=== PATIENT | male | born 1950 | race Caucasian/White ===

== ENCOUNTER → 2019-10-13 10:02 | Outpatient (CLI) | payer OTHER | END | disposition home or self-care (01) | LOC: D.HCCARDIO 10:00 → D.HCCECHO 10:30 | PROVIDERS: ATTEND Internal Medicine Cardiovascular Disease | DX: I10 Essential (primary) hypertension (principal) ==

== ENCOUNTER → 2019-11-14 08:56 | Outpatient (CLI) | payer OTHER | END | disposition home or self-care (01) | LOC: D.HCCARDIO 08:56 | PROVIDERS: ATTEND Internal Medicine Cardiovascular Disease | DX: I20.9 Angina pectoris, unspecified (principal) ==

== ENCOUNTER 2019-11-28 07:24 | Outpatient (CLI) | payer OTHER ==
[~2019-11-28] VITALS: Ht 177.8 cm; Wt 85.3 kg
--- NOTE | ~2019-11-28 | HEMODYNAMI ---
PATIENT:LUANNE FARLEY MEDICAL RECORD: [id number] : 52 LOCATION:[facility] ADMISSION DATE: 11/28/19 Generatedon:11/28/201910:14 Patient name: LUANNE FARLEY Patient #: [id number] : 1950 Date of study: 11/28/2019 Page: Of Hemodynamic Procedure Report Patient Data Patient Demographics Procedure consent was obtained First Name: LUANNE Gender: Male Last Name: MARTINE : 1950 Patient #: [id number] Age: 69 year(s) Race: SSN: [id number] Additional ID: [id number] Contact details Address: [address] [place] [address] State: [place] City: [place] Zip code: [address] Past Medical History Allergies: No known allergies Admission Admission Data Admission Date: 11/28/2019 Admission Time: 7:24 Arrival Date: 11/28/2019 Arrival Time: 9:30 Admit Source: Other Insurance Payor: Private health insurance [facility] #: [id number] Height (in.): 70 BSA: 2.03 (m2) Height (cm.): 177.8 BMI: 26.89 (kg/m2) Weight (lbs.): 187.39 Weight (kg.): 85 Lab Results Lab Result Date: 11/28/2019 Lab Result Time: 0:00 Biochemistry Name Units Result Min Max BUN mg/dl 13 --(--*-)-- 7 18 Creatinine mg/dl 1.3 --(---*)-- 0.6 1.3 eGFR ml/min 58 *-(----)-- 90 120 NONAFRICAN CBC Name Units Result Min Max Hematocrit % 48.9 --(--*-)-- 42 54 Hemoglobin g/dl 16.5 --(--*-)-- 13.5 17.5 Procedure Procedure Types Cath Procedure Diagnostic Procedure [facility] w/Coronaries Sedation Charges Moderate Sedation up to 15 minutes Procedure Description Procedure Date Procedure Date: 11/28/2019 Procedure Start Time: 10:03 Procedure End Time: 10:12 Procedure Staff Name Function Pedro Braden MD Performing Physician Meredith Ford RT Monitor Conchis Dyer RT Scrub Rosie Saab RN Nurse Procedure Data Cath Procedure Fluoroscopy Diagnostic fluoroscopy Total fluoroscopy Time: 2.3 time: 2.3 min min Diagnostic fluoroscopy Total fluoroscopy dose: 528 dose: 528 mGy mGy Contrast Material Contrast Material Type Amount (ml) Isovue 300 33 Entry Location Entry Primary Successful Side Size Upsize Upsize Entry Closure [place] ccessful Closure Location (Fr) 1 (Fr) 2 (Fr) Remarks Device Remarks Radial Right 6 Fr Mechanical artery Short Compression Estimated blood loss: 5 ml Diagnostic catheters Device Type Used For End Catheter Placement DIAGNOSTIC Sánchez 110cm Multi-vessel 5Fr catheter ([id number]) Angiography DIAGNOSTIC [place] 110cm 5 Multi-vessel Fr catheter (328931) Angiography Procedure Complications No complications Procedure Medications Medication Administration Route Dosage Oxygen etCO2 Nasal cannula 2 l/min Lidocaine 2% added to field 20 Heparin Flush Bag added to field 2 bags (1000units/500ml NS) 0.9% NaCl I.V. 100 ml/hr Versed I.V. 1 mg Fentanyl I.V. 50 mcg Versed I.V. 1 mg Fentanyl I.V. 50 mcg Radial Cocktail I.A. 1 syringe (Verapamil 2mg/Nitro 400mcg/Heparin 1500units) Hemodynamics Rest BSA: 2.03 (m2) HGB: 16.5 (g/dl) O2 Consumption: Estimated: 225.52 (ml/min) O2 Co nsumption indexed: Estimated:111.09 (ml/min/m) Heart Rate: 57 (bpm) Pressure Samples Time Site Value (mmHg) Purpose Heart Use Rate(bpm) 10:04 LV 97/-6,3 Snapshot 65 10:05 AO 72/43(53) Pullback 67 10:05 LV 91/-7,3 Pullback 67 Gradients Valve Time Site 1 Site 2 Mean SEP/DFP Peak To Heart Use (mmHg) (sec/min) Peak Rate (mmHg) (bpm) Aortic 10:05 LV AO 10 19 19 67 91/-7,3 72/43(53) Calculations Valve P-P Mean Valve Index Valve Source Name Gradient Area Flow (cm2) Aortic 19 10 19 10 Snapshots Pre Cath Intra NCS Post Cath Vital Signs Time Heart Resp SPO2 etCO2 NIBP Rhythm Pain Sedation Rate (ipm) (%) (mmHg) (mmHg) Status Level (bpm) 9:45:37 56 14 99 0 126/70(88) NSR 0 (11) 10(A) , No pain 9:49:49 57 15 99 37.3 123/71(83) NSR 0 (11) 10(A) , No pain 9:54:01 56 12 95 0 115/70(82) NSR 0 (11) 10(A) , No pain 9:58:11 62 13 92 0 111/66(80) NSR 0 (11) 10(A) , No pain 10:02:21 60 11 94 34.3 108/62(74) NSR 0 (11) 9(A) , No pain 10:06:31 62 11 92 0 104/60(75) NSR 0 (11) 9(A) , No pain 10:10:37 64 14 93 29.8 108/63(83) NSR 0 (11) 10(A) , No pain Medications Time Medication Route Dose Verified Delivered Reason Notes Effectiveness by by 9:45:09 Oxygen etCO2 2 l/min Pedro Buffie used for Nasal Sampson Saab RN procedure cannula 9:45:16 Lidocaine 2% added 20ml Pedro Pedro for local to vial Sampson Braden MD anesthetic field 9:45:20 Heparin Flush added 2 bags Pedro Pedro used for Bag to Sampson Braden MD procedure (1000units/500ml field NS) 9:45:29 0.9% NaCl I.V. 100 Pedro Buffie Per ml/hr Sampson Saab RN physician 9:51:58 Versed I.V. 1 mg Pedro Buffie for sedation Sampson Saab RN 9:52:03 Fentanyl I.V. 50 mcg Pedro Buffie for sedation Sampson Saab RN 9:56:28 Versed I.V. 1 mg Pedro Buffie for sedation Sampson Saab RN 9:56:31 Fentanyl I.V. 50 mcg Pedro Buffie for sedation Sampson Saab RN 10:03:22 Radial Cocktail I.A. 1 Pedro Pedro for (Verapamil syringe Sampson Braden MD vasodilation 2mg/Nitro 400mcg/Heparin 1500units) Procedure Log Time Note 9:23:15 Diagnostic Cath Status : Elective 9:24:18 Procedure Status Elective Heart Cath (OP). 9:24:21 Conchis Dyer RT(R) sent for patient. Start room use. 9:24:22 Time tracking: Regular hours (M-F 7:00 - 5:00) 9:24:27 Plan of Care:Hemodynamics will remain stable., Cardiac rhythm will remain stable., Comfort level will be maintained., Respiratory function will remain adequate., Patient/ family verbilizes understanding of procedure., Procedure tolerated without complication., Recovers from procedure without complications.. 9:25:55 Informed consent obtained and on chart 9:27:36 Arrival Date: 11/28/2019 9:30:00 AM 9:27:59 Admit Source: Other 9:28:05 Insurance Payor : Private health insurance 9:32:01 Patient Weight : 187.39 lbs 9:32:13 Patient Height : 70 inches 9:32:37 H&P Date Dictated: 11/28/2019 Within 30 days and on chart., H&P Addendum completed by physician on day of procedure. (MUST COMPLETE FOR ALL OUTPATIENTS). 9:32:44 Patient allergic to No known allergies 9:33:11 Lab Result : BUN 13 mg/dl 9:33:11 Lab Result : Creatinine 1.3 mg/dl 9:33:11 Lab Result : eGFR NONAFRICAN 58 ml/min 9:33:12 Lab Result : Hemoglobin 16.5 g/dl 9:33:12 Lab Result : Hematocrit 48.9 % 9:38:36 Patient received from Pre/Post Procedure Room to CCL 2 Alert and oriented. Tansferred to table in Supine position. 9:38:37 Warm blankets applied, and amelia hugger turned on for patient comfort. 9:38:37 Correct patient and procedure confirmed by team. 9:38:38 ECG and BP/O2 sat monitors applied to patient. 9:44:28 Vital chart was started 9:45:09 Oxygen 2 l/min etCO2 Nasal cannula was administered by Rosie Saab RN; used for procedure; Verbal order read back and verified. 9:45:16 Lidocaine 2% 20ml vial added to field was administered by Pedro Braden MD; for local anesthetic; Verbal order read back and verified. 9:45:20 Heparin Flush Bag (1000units/500ml NS) 2 bags added to field was administered by Pedro Braden MD; used for procedure; Verbal order read back and verified. 9:45:29 0.9% NaCl 100 ml/hr I.V. was administered by Rosie Saab RN; Per physician; Verbal order read back and verified. 9:47:19 Baseline sample Acquired. 9:47:23 Rhythm: sinus rhythm 9:47:24 Pre-procedure instructions explained to patient. 9:47:25 Pre-op teaching completed and patient verbalized understanding. 9:47:27 Family in patients room. 9:47:28 Patient NPO since Midnight. 9:47:31 Is the patient allergic to Iodine/contrast media? No. 9:47:42 Was the patient premedicated? No 9:47:42 Is patient on blood thinner?No 9:47:44 Patient diabetic? No. 9:47:46 Previous problem with sedation/anesthesia? No ? 9:47:47 Snore? Yes 9:47:48 Sleep apnea? No 9:47:50 Deviated septum? No 9:47:51 Opens mouth fully? Yes 9:47:51 Sticks out tongue? Yes 9:47:53 Airway obstruction? No ? 9:47:56 Dentures? No ? 9:47:59 Pre procedure: right dorsailis pedis pulse 2+ Normal; easily identifiable; not easily obliterated 9:48:01 Pre procedure: left dorsailis pedis pulse 2+ Normal; easily identifiable; not easily obliterated 9:48:04 Patient pain scale 0/10 ?. 9:48:08 IV patent on arrival in left forearm with 0.9% NaCl at [facility]. 9:48:14 Lab results completed and on chart. 9:48:22 Stress Test: yes; abnormal inferior 9:48:28 Right Radial & Right Groin area was prepped with chlora-prep and draped in sterile fashion 9:48:29 Alarms reviewed by R. N. 9:48:30 Sharps counted by scrub and verified by R.N. 9:48:31 Physician arrived 9:48:31 --------ALL STOP TIME OUT------ 9:48:32 Final Timeout: patient, procedure, and site verified with staff and physician. All members of the team are in agreement. 9:48:33 Right Radial & Right Groin site verified by team. 9:48:37 Fire Safety Assessment: A--An alcohol-based skin anteseptic being used preoperatively., C--Open oxygen or nitrous oxide is being used., D--An ESU, laser, or fiber-optic light is being used. 9:48:39 Physical assessment completed. ASA score P 2 - A patient with mild systemic disease as per Pedro Braden MD. 9:48:45 3a) 45-59 Moderately reduced kidney function. 9:48:48 Maximum allowable contrast dose (3.7 X eGFR X 0.75)161 ml. 9:48:53 Sedation plan: IV Moderate Sedation Medication:Versed, Fentanyl 9:50:22 Use device set Radial Dx or PCI 9:50:24 ACIST Syringe (57821) opened to sterile field. 9:50:24 Medline Cath Pack ([id number]) opened to sterile field. 9:50:25 Bag Decanter (2002S) opened to sterile field. 9:50:25 ACIST Hand Control (10695) opened to sterile field. 9:50:25 ACIST Manifold (85257) opened to sterile field. 9:50:26 Tegaderm 4 x 4 (1626W) opened to sterile field. 9:50:26 MBrace Wrist Support ([id number]) opened to sterile field. 9:50:27 NEEDLE Cook 21G 4cm Radial (I91051) opened to sterile field. 9:50:29 EMERALD Guide Wire (181-886) opened to sterile field. 9:50:29 SHEATH 6FR RAIN (7430320) opened to sterile field. 9:51:52 Zero performed for pressure channel P1 9:51:58 Versed 1 mg I.V. was administered by Rosie Saab RN; for sedation; Verbal order read back and verified. 9:52:03 Fentanyl 50 mcg I.V. was administered by Rosie Saab RN; for sedation; Verbal order read back and verified. 9:56:28 Versed 1 mg I.V. was administered by Rosie Saab RN; for sedation; Verbal order read back and verified. 9:56:31 Fentanyl 50 mcg I.V. was administered by Buffie Saab RN; for sedation; Verbal order read back and verified. 10:03:22 Radial Cocktail (Verapamil 2mg/Nitro 400mcg/Heparin 1500units) 1 syringe I.A. was administered by Pedro Braden MD; for vasodilation; Verbal order read back and verified. 10:03:42 Procedure started. 10:03:42 Full Disclosure recording started 10:03:58 Local anesthetic to right radial artery with Lidocaine 2% by Pedro Braden MD.INITIAL ACCESS ONLY 10:04:09 A 6 Fr Short sheath was inserted into the Right Radial artery 10:04:10 A DIAGNOSTIC Sánchez 110cm 5Fr catheter (262382) was advanced over the wire and used for Multi-vessel Angiography. 10:04:47 LV hemodynamics recorded. 10:04:48 LV gram done using JAMES 10:04:50 Injector settings: Ml/sec: 5, Volume: 15, 10:06:14 RCA angiography performed. 10:06:39 Injector settings: Ml/sec: 3, Volume: 6, 10:07:05 Catheter removed. 10:07:13 A DIAGNOSTIC [place] 110cm 5 Fr catheter (202104) was advanced over the wire and used for Multi-vessel Angiography. 10:07:40 LCA angiography performed. 10:07:46 Injector settings: Ml/sec: 3, Volume: 6, 10:09:31 Catheter removed. 10:09:34 ZEPHYR REGULAR TR BAND (965644) opened to sterile field. 10:10:00 ACCDominant side:Right 10:10:22 Sheath removed intact; hemostasis achieved with Mechanical Compression to the Right Radial artery. 10:10:25 Procedure ended.(Physican Out) 10:10:41 Fluoroscopy time 02.30 minutes. 10:10:45 Fluoroscopy dose: 528 mGy 10:10:45 Flurop Dose total: 528 10:10:54 Dose Area Product 37423 mGy/cm. 10:11:03 Contrast amount:Isovue 300 33ml. 10:11:05 Maximum allowable dose exceeded? No. 10:11:06 Sharps counted by scrub and verified by R.N. 10:11:09 [place] band inflated with 9cc of air. 10:11:10 Insertion/operative site no bleeding no hematoma. 10:11:25 Post right radial artery:stable 10:11:26 Post Procedure Pulses reassessed and unchanged 10:11:31 Post procedure rhythm: unchanged. 10:11:33 Estimated blood loss: 5 ml 10:11:35 Post procedure instruction explained to patient.Patient verbalizes understanding. 10:11:35 Patient needs reinforcement of post procedure teaching. 10:11:46 Procedure type changed to Cath procedure, Diagnostic procedure, LHC, C w/Coronaries, Sedation Charges, Moderate Sedation up to 15 minutes 10:11:47 Procedure and supply charges have been captured, reviewed, submitted and are correct. 10:11:51 Procedure Complication : No complications 10:11:53 Vital chart was stopped 10:11:57 [facility] Findings: mild to moderate CAD (<70%) 10:11:58 Operative report dictated upon procedure completion. 10:11:59 See physician's report for complete and final results. 10:12:00 Report given to Pre/Post Procedure Room. 10:12:03 Patient transfered to Pre/Post Procedure Room with Stretcher. 10:12:05 Procedure ended. 10:12:05 Full Disclosure recording stopped 10:12:12 End room use (Document Last) Device Usage Item Name Manufacture Quantity Catalog Hospital Part Current Minima l Lot# / Number Charge Number Stock Stock Serial# Code ACIST Acist 1 63354 392136 [id number] [id number] 20 Syringe Medical (83134) Systems Inc Medline Medline 1 [id number] 814062 96961 858944 5 Cath Pack ([id number]) Bag Microtek 1 2001S 282168 45362 854788 5 Decanter Medical Inc. () ACIST Hand Acist 1 19993 054121 690175 909645 5 Control Medical (06441) Systems Inc ACIST Acist 1 47526 373671 771202 898239 5 Manifold Medical (40376) Systems Inc Tegaderm 4 3M 1 1626W 387136 352545 152609 5 x 4 (1626W) MBrace Advanced 1 140-0250-00 538926 42630 185689 5 Wrist Vascular Support Dynamics ([id number]) NEEDLE Galeno Plus Medical 1 L87328 712477 802808 667034 5 21G 4cm Radial (Q10783) EMERALD Cardinal 1 502-133 413079 371281 735315 5 Guide Wire [facility] (878-450) SHEATH 6FR Cardinal 1 1912187 844271 1365936 180674 5 RAIN Health (0554989) DIAGNOSTIC Terumo 1 405023 524655 134660 269645 5 Sánchez 110cm 5Fr catheter (385271) DIAGNOSTIC Terumo 1 40-5013 663724 331276 416092 5 [place] 110cm 5 Fr catheter (496750) ZEPHYR Cardinal 1 274276 274366 8497941 693506 5 REGULAR TR Health BAND (950744) Signature Audit Depue Stage Time Signature Unsigned Intra-Procedure 11/28/2019 Meredith Ford 10:13:21 AM RT(R) Intra-Procedure 11/28/2019 Rosie Saab RN 10:14:22 AM Intra-Procedure 11/28/2019 Pedro Braden MD 10:14:44 AM Signatures Performing Physician : Signature : Pedro Braden MD Date : Time : Monitor : Meredith Ford RT Signature : Date : Time : Nurse : Rosie Saab RN Signature : Date : Time : [facility] [address] [place] [address]
[2019-11-28] MEDS ORDERED: LIPITOR40 MG PO (08:12)
[2019-11-28] MEDS ORDERED: LISINOPRIL-HCT1 EAC7 PO (08:12)
[2019-11-28 08:36] LABS: BASOPHILS 0.3 % (0-2); EOSINOPHILS 2.2 % (0-7); HEMATOCRIT 48.9 % (42.0-54.0); HEMOGLOBIN 16.5 g/dL (13.5-17.5); IMMATURE GRANULOCYTES 0.3 % (0-5); LYMPHOCYTES 22.8 % (15-50); MCH 31.5 pg (26.0-34.0); MCHC 33.7 g/dL (31.0-37.0); MCV 93.3 fL (80.0-100.0); MEAN PLATELET VOLUME 9.4 fL (7.4-10.4); MONOCYTES 6.7 % (2-11); NEUTROPHILS 67.7 % (40-80); PLATELET COUNT 612 10x3/uL (130-400); RBC 5.24 10x6/uL (4.20-6.10); RDW 14.2 % (11.5-14.5); WBC 9.3 10x3/uL (4.8-10.8)
[2019-11-28 08:41] VITALS: BP 142/68; Ht 177.8 cm; Wt 85.3 kg
[2019-11-28 08:51] LABS: CALCIUM 9.1 mg/dL (8.5-10.1); CHOL - HDL RATIO 2.4 ratio (2.3-4.9); CREATININE - SERUM 1.3 mg/dL (0.6-1.3); LDL-HDL RATIO 1.1 ratio (1.5-3.5)
--- NOTE | 2019-11-28 10:25 | NUR ---
PT ARRIVED BY STRETCHER. PLACED ON MONITORS. ASSESSMENT COMPLETED. VSS AT THIS TIME. AT BEDSIDE.
--- NOTE | 2019-11-28 10:40 | NUR ---
PT RESTING COMFORTABLY. VSS. RIGHT WRIST Z BAND IN PLACE. NO BLEEDING/HEMATOMA NOTED. CALL LIGHT WITHIN REACH. FAMILY AT BEDSIDE.
--- NOTE | 2019-11-28 11:20 | NUR ---
RIGHT WRIST Z BAND. NO BLEEDING/HEMATOMA NOTED. VSS AT THIS TIME. CALL LIGHT WITHIN REACH.
--- NOTE | 2019-11-28 11:50 | NUR ---
RIGHT WRIST Z BAND IN PLACE. NO BLEEDING/HEMATOMA NOTED. CALL LIGHT WITHIN REACH. VSS AT THIS TIME.
--- NOTE | 2019-11-28 12:15 | NUR ---
2cc OF AIR REMOVED FROM Z BAND. NO BLEEDING/HEMATOMA NOTED. VSS AT THIS TIME. CALL LIGHT WITHIN REACH.
--- NOTE | 2019-11-28 12:30 | NUR ---
3cc OF AIR REMOVED FROM Z BAND. NO BLEEDING/HEMATOMA NOTED. CALL LIGHT WITHIN REACH. VSS.
--- NOTE | 2019-11-28 12:50 | NUR ---
4cc OF AIR REMOVED FROM Z BAND. NO BLEEDING/HEMATOMA NOTED. CALL LIGHT WITHIN REACH. VSS AT THIS TIME.
--- NOTE | 2019-11-28 13:10 | NUR ---
Z BAND REMOVED AND DRESSING APPLIED. NO BLEEDING/HEMATOMA NOTED. PIV D/C'D WITH CATH TIP INTACT. TOLERATED WELL. VSS AT THIS TIME. PT INSTRUCTED TO GET UP AND DRESSED.
--- NOTE | 2019-11-28 13:25 | NUR ---
PT AMBULATED TO RESTROOM. VOIDED WITHOUT DIFFICULTY. STEADY GAIT NOTED.
--- NOTE | 2019-11-28 13:30 | NUR ---
DISCUSSED DISCHARGE INSTRUCTIONS WITH PT AND PT'S . THEY VOICED UNDERSTANDING. RIGHT WRIST DRESSING C/D/I. NO S/S OF HEMATOMA NOTED. PT TAKEN DOWN TO VEHICLE BY WHEELCHAIR. NO S/S OF DISTRESS NOTED. ALL BELONGINGS AND PAPERWORK IN HAND.
== END 2019-11-28 13:30 | disposition home or self-care (01) ==
LOC: D.CATH 07:24
PROVIDERS: ATTEND Internal Medicine Cardiovascular Disease
DX: I25.119 Atherosclerotic heart disease of native coronary artery with unspecified angina pectoris (principal); R94.39 Abnormal result of other cardiovascular function study; I10 Essential (primary) hypertension; E78.5 Hyperlipidemia, unspecified; R00.2 Palpitations